=== PATIENT | female | born 1955 | race Caucasian/White ===

== ENCOUNTER → 2020-04-27 11:50 | Outpatient (CLI) | payer BC, SELFPAY ==
--- NOTE | ~2020-04-27 | MM_ITS ---
EXAMINATION: MM screening [facility] w [facility] HISTORY: Screening TECHNIQUE: Craniocaudal and mediolateral oblique 3-D tomosynthesis images were obtained and synthetic 2-D images were generated. CAD analysis was submitted and interpreted. COMPARISON: Comparison to multiple prior studies sequentially, with oldest reviewed study dated 03/30. BREAST PARENCHYMAL COMPOSITION: There are scattered areas of fibroglandular density. FINDINGS: There is no evidence of suspicious mass, calcification, or architectural distortion to sugg est malignancy in either breast. There has been no suspicious interval change. IMPRESSION: 1. No mammographic evidence of malignancy. 2. Recommend routine screening mammography in one year. BI-RADS Category 1: Negative Reviewed, dictated and finalized at location A. 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
== END ==
PROVIDERS: PCP Internal Medicine; Visit Provider Internal Medicine
DX: Z12.31 Encounter for screening mammogram for malignant neoplasm of breast (principal)
CPT/HCPCS: 77063; 77067

== ENCOUNTER → 2021-05-20 15:14 | Outpatient (CLI) | payer BC, SELFPAY ==
--- NOTE | ~2021-05-20 | MM_ITS ---
EXAMINATION: MM screening [place] [facility] w [facility] HISTORY: Screening TECHNIQUE: Craniocaudal and mediolateral oblique 3-D tomosynthesis images were obtained and synthetic 2-D images were generated. CAD analysis was submitted and interpreted. COMPARISON: Comparison to multiple prior studies sequentially, with oldest reviewed study dated 05/2014. BREAST PARENCHYMAL COMPOSITION: Breast composed of scattered areas of fibroglandular density. FINDINGS: There is no evidence of suspicious mass, calcification, or architectural distortion to sugg est malignancy in either breast. There has been no suspicious interval change. IMPRESSION: 1. No mammographic evidence of malignancy. 2. Recommend routine screening mammography in one year. BI-RADS Category 1: Negative Reviewed, dictated and finalized at location A. 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
== END ==
PROVIDERS: PCP Internal Medicine; Visit Provider Internal Medicine
DX: Z12.31 Encounter for screening mammogram for malignant neoplasm of breast (principal)
CPT/HCPCS: 77063; 77067

== ENCOUNTER 2022-06-03 07:16 | Outpatient (CLI) | payer BC, SELFPAY ==
--- NOTE | ~2022-06-03 | MM_ITS ---
EXAMINATION: MM screening [facility] w [facility] HISTORY: Screening mammogram TECHNIQUE: Craniocaudal and mediolateral oblique 3-D tomosynthesis images were obtained and synthetic 2-D images were generated. CAD analysis was submitted and interpreted. COMPARISON: 05/20/2021, 04/27/2020, 04/03/2019, 04/01/2018, 02/16/2017, 11/25/2015 bilateral screening ma mmogram examinations BREAST PARENCHYMAL COMPOSITION: There are scattered areas of fibroglandular density. FINDINGS: Stable mild fibroglandular asymmetry since 11/17/2015. There is no evidence of suspicious ma ss, calcification, or architectural distortion to suggest malignancy in either breast. There has been no suspicious interval change. IMPRESSION: 1. No mammographic evidence of malignancy. 2. Recommend routine screening mammography in one year. BI-RADS Category 1: Negative Reviewed, dictated and finalized at location A. COILER
== END 2022-06-03 07:17 | disposition home or self-care (01) ==
LOC: ANHIMG 07:19
PROVIDERS: PCP Internal Medicine; Visit Provider Internal Medicine
DX: Z12.31 Encounter for screening mammogram for malignant neoplasm of breast (principal)
CPT/HCPCS: 77063; 77067

== ENCOUNTER 2023-07-16 15:12 | Outpatient (CLI) | payer MEDICARE, OTHER, SELFPAY ==
--- NOTE | ~2023-07-16 | MM_ITS ---
EXAMINATION: MM screening [facility] w [facility] HISTORY: Screening TECHNIQUE: Craniocaudal and mediolateral oblique 3-D tomosynthesis images were obtained and synthetic 2-D images were generated. CAD analysis was submitted and interpreted. COMPARISON: Comparison to multiple prior studies sequentially, with oldest reviewed study dated 01/29. BREAST PARENCHYMAL COMPOSITION: Not dense: There are scattered areas of fibroglandular density. FINDINGS: There is no evidence of suspicious mass, calcification, or architectural distortion to sugg est malignancy in either breast. There has been no suspicious interval change. IMPRESSION: 1. No mammographic evidence of malignancy. 2. Recommend routine screening mammography in one year. BI-RADS Category 1: Negative Reviewed, dictated and finalized at location A.
== END 2023-07-16 15:13 | disposition home or self-care (01) ==
LOC: ANHIMG 15:15
PROVIDERS: PCP Internal Medicine; Visit Provider Internal Medicine
DX: Z12.31 Encounter for screening mammogram for malignant neoplasm of breast (principal)
CPT/HCPCS: 77063; 77067

== ENCOUNTER 2024-08-25 14:59 | Outpatient (CLI) | payer MEDICARE, OTHER, SELFPAY ==
--- NOTE | ~2024-08-25 | MM_ITS ---
EXAMINATION: MM screening carlita BI w rosendo HISTORY: Screening mammogram, family history of breast cancer in her mother. TECHNIQUE: Craniocaudal and mediolateral oblique 3-D tomosynthesis images were obtained and synthetic 2-D images were generated. CAD analysis was submitted and interpreted. COMPARISON: 07/16/2023, 06/03/2022, 05/20/2021, 04/27/2020 BREAST PARENCHYMAL COMPOSITION:Not Dense. There are scattered areas of fibroglandular density. FINDINGS: No suspicious mass, calcification, or architectural distortion are identified in either she ast to suggest malignancy. There has been no suspicious interval change. IMPRESSION: No mammographic evidence of malignancy. Recommend routine screening mammography in one year. BI-RADS Category 1: Negative Reviewed, dictated and finalized at location .
--- OUTSIDE RECORDS SUMMARY | 2024-08-25 17:12 | XMS_ITS | CONTINUITY OF CARE DOCUMENT ---
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 [id number]
--- OUTSIDE RECORDS SUMMARY | 2024-08-25 17:12 | XMS_ITS | Data Portability ---
Author Organization [place] [facility] [employer], Main Office Address [address] [place] [address] Assessment No assessment recorded. Plan of Treatment Reminders Order Date Submit Date Provider Last Modified By Organization Details Last Modified Time Details Appointments Medicare Wellness 15 2024 08:45A Tima Ahn MD Not available Not available Not available Lab glycohemo globin, total, blood [address] (Lab), [address] [place], [address], 01/01/2024 11:10:46 vitamin D, 25-hydrox y, total, serum [address] (Lab), [address] [place], [address], 01/01/2024 11:10:45 CBC w/ auto diff [address] (Lab), [address] [place], [address], 01/01/2024 11:10:46 lipid panel, serum [address] (Lab), [address] [place], [address], 01/01/2024 11:10:45 CMP, serum or plasma [address] (Lab), [address] [place], [address], 01/01/2024 11:10:46 vitamin D, 25-hydrox y, total, serum 2022 023 [facility] (Lab), [address] [place], [address], 01/24/2023 14:50:49 CBC w/ auto diff 2022 023 [facility] (Lab), [address] [place], [address], 01/24/2023 13:49:49 lipid panel, serum 2022 023 [facility] (Lab), [address] [place], [address], 01/24/2023 13:48:42 CMP, serum or plasma 2022 023 [facility] (Lab), [address] [place], [address], 01/24/2023 13:48:53 Referral None recorded. Procedures None recorded. Surgeries None recorded. Imaging None recorded. Medication Orders meloxicam 15 mg tablet 2024 025 [id number], [address], [place], [id number], 05/16/2024 09:45:49 Patient TargetsNo targets recorded. Patient Instructions Encounter Date Encounter Id Patient Instructions Last Modified By Organization Details Last Modified Time 12/18/2023 [id number] dementia rating scale-2* Not available 12/18/2023 17:02:55 depression screening* Not available 12/18/2023 17:02:55 alcohol misuse* Not available 12/18/2023 17:02:55 multi-dimensiona l health assessment questionnaire* Not available 12/18/2023 17:02:55 advance directiv es: care instructions Not available 12/18/2023 17:02:55 advance care planning: care instructions Not available 12/18/2023 17:02:55 [place] Advance Directives Not available 12/18/2023 17:02:54 Personalized a lt Plan and Screening Recommendations Advance Directives - Do you have one? No You have indicated that you are capable of preparing your advance care directive Advance Directives - Do we have your advance directive on file in your health record? No, please bring in a copy at your earliest convenience Primary Prevention/Interven tion (prevents or decreases the chance of common diseases from occurring) Smoking Risk: Non Smoker Alcohol Misuse Screening: Negative Weight: Appropriate Overwei ght continue your current weight loss efforts try to lose 5% of your body weight try to lose 10% of your body weight Physical activity: Appropriate physical activity minimum of 10-20 minutes of activity that causes mild breathlessness/day Nutrition: Good Average Refer to attached handout Heart-Healthy Diet: After Your Visit Refer to attached handout DASH Diet: After Your Visit Fall Risk (screened today): Low Refer to attached handout Preventing Falls: After your Visit Vaccines Pneumococcal: Ordered Recommended today Recommended today, but you have declined No further needed Influenza: Your next one in the fall of this year Chronic Disease Risks Stroke: Low Risk I have no recommendations Act luís diagnosis, Continue current treatment plan Heart Attack: Low risk I have no recommendations Clogging of the Arteries: Low risk I have no recommendations Act luís diagnosis, Continue current treatment plan Diabetes: Low Risk I have no recommendations Secondary Prevention/Interven tion (detects treatable diseases before they may cause symptoms, disability, or ) Breast Cancer Screening with mammogram: No screening necessary Cervical/Uterine/Ov garth Cancer Screening: No screening necessary Osteoporosis Screening: No screening necessary Date Screening Last Performed: _2022 Colon Cancer Screening: Colonoscopy Date Screening Last Performed: 2022_ Eye Disease Screening: No Eye exam necessary Dementia Risk: Low I have no recommendations Depression Screening: Negative [id number] Not available 12/18/2023 17:00:13 Reason for Referral None Reported. Results Created Date Observation Date Name Description Value Unit Range Abnormal Flag Note LastModifiedBy Organization Detail LastModifiedTime 07/15/19 21 07/14/2020 urina lysis , dipst ick Leukocytes (reference range: negative linda/ l) Negati ve Not Available [id number] [address] [place], [address], 07/14/2020 13:06:57 07/15/19 21 07/14/2020 urina lysis , dipst ick Nitrite (reference rage: negative mg/dl) negati ve Not Available [facility] [address] [place], [address], 07/14/2020 13:06:57 07/15/19 21 07/14/2020 urina lysis , dipst ick Urobilinogen (reference range: 0.2-1 mg/dl) 0.2 Not Available [facility] [address] [place], [address], 07/14/2020 13:06:57 07/15/19 21 07/14/2020 urina lysis , dipst ick Protein (reference range: negative mg/dl) Negati ve Not Available [facility] [address] [place], [address], 07/14/2020 13:06:57 07/15/19 21 07/14/2020 urina lysis , dipst ick pH (reference range: 5-7) 5.[address] [facility] [address] [place], [address], 07/14/2020 13:06:57 07/15/19 21 07/14/2020 urina lysis , dipst ick Blood (reference range: negative Jon/ l) Negati ve Not Available [facility] [address] [place], [address], 07/14/2020 13:06:57 07/15/19 21 07/14/2020 urina lysis , dipst ick Specific [place] (reference range: 1.005-1.030) 1.005 Not Available [facility] [place], [address], 07/14/2020 13:06:57 07/15/19 21 07/14/2020 urina lysis , dipst ick Ketone (reference range: negative mg/dl) Negati ve Not Available [facility] [address] [place], [address], 07/14/2020 13:06:57 07/15/19 21 07/14/2020 urina lysis , dipst ick Bilirubin (reference range: negative mg/dl) Negati ve Not Available [facility] [address] [place], [address], 07/14/2020 13:06:57 07/15/19 21 07/14/2020 urina lysis , dipst ick Glucose (reference range: negative mg/dl) Negati ve Not Available [facility] [address] [place], [address], 07/14/2020 13:06:57 07/15/19 21 07/14/2020 urina lysis , dipst ick Appearance Clear Not Available [facility] [address] [place], [address], 07/14/2020 13:06:57 07/15/19 21 07/14/2020 urina lysis , dipst ick Color Pale Yellow Not Available [facility] [address] [place], [address], 07/14/2020 13:06:57 04/20/20 21 04/20/2021 VITAM IN D 25-HY DROXY [id number] 68.2 NG/mL 30-100 Vitam in D Statu s: Defic ient: <20 ng/mL Insuf ficie nt: 20-29 ng/mL Suffi cient : 30-10 0 ng/mL Not Available [facility] (Lab) [address] [place], [address], 04/20/2021 12:25:53 04/20/2004/20/2021 HEMOG LOBIN A1C HA1C 5.6 % 4.0-6. 0 Diabe sukhwinder Scree mike Crite fernanda: <5.7% Consi stent with absen ce of diabe sukhwinder 5.7-6 .4% Consi stent with incre ased risk for diabe sukhwinder (pred iabet es) >OR=6 .5% Consi stent with diabe sukhwinder REFER ENCE: Diabe sukhwinder Care 2016, 39(Meier ppl.1 ):s13 -s22 Not Available [facility] (Lab) [address] [place], [address], 04/20/2021 12:06:07 04/20/20 21 04/20/2021 COMPR EHENS LUÍS METAB OLIC PANEL sodium 139 mmol/ L 137-14 5 Not Available [facility] (Lab) [address] [place], [address], 04/20/2021 11:30:56 04/20/20 21 04/20/2021 COMPR EHENS LUÍS METAB OLIC PANEL potassium 4.7 mmol/ L 3.5-5. 1 Not Available [facility] (Lab) [address] [place], [address], 04/20/2021 11:30:56 04/20/20 21 04/20/2021 COMPR EHENS LUÍS METAB OLIC PANEL chloride 103 mmol/ L 98-107 Not Available [facility] (Lab) [address] [place], [address], 04/20/2021 11:30:56 04/20/20 21 04/20/2021 COMPR EHENS LUÍS METAB OLIC PANEL carbon dioxide 28 mmol/ L 22-30 Not Available [facility] (Lab) [address] [place], [address], 04/20/2021 11:30:56 04/20/20 21 04/20/2021 COMPR EHENS LUÍS METAB OLIC PANEL agap 12.7 mmol/ L 14-22 low Not Available [facility] (Lab) [address] [place], [address], 04/20/2021 11:30:56 04/20/20 21 04/20/2021 COMPR EHENS LUÍS METAB OLIC PANEL glucose 102 mg/dL 70-99 high Not Available [facility] (Lab) [address] [place], [address], 04/20/2021 11:30:56 04/20/20 21 04/20/2021 COMPR EHENS LUÍS METAB OLIC PANEL BUN 15 mg/dL 8-19 Not Available [facility] (Lab) [address] [place], [address], 04/20/2021 11:30:56 04/20/20 21 04/20/2021 COMPR EHENS LUÍS METAB OLIC PANEL creatinine 0.62 mg/dL 0.66-1 .25 low Not Available [facility] (Lab) [address] [place], [address], 04/20/2021 11:30:56 04/20/20 21 04/20/2021 COMPR EHENS LUÍS METAB OLIC PANEL GFR >60 Refer ence Range : [place] GFR Healt hy Adult : >60 mL/mi n/1.7 3 m2 Chron ic Kidne y Disea se: 15-60 mL/mi n/1.7 3 m2 Kidne y Failu re: <15/m L/min /1.73 m2 www.n iddk. nih.g ov The MDRD study equat ion has not been valid ated in child chris <18 years of age; pregn ant women ; the elder ly >85 years of age; or in some racia l or ethni c subgr oups, such as Hispa nics. Outsi de the valid ated kade eters , estim ated GFR is less accur ate, requi ring clini ghulam judgm ent on a case- by-ca se basis . Clini ghulam inter preta tion for other races and ages must be made by the clini ro. The MDRD study equat ion has not been valid ated for the evalu ation of serum creat inine relat ed to nutri ellis l statu s or medic ation usage . For perso ns <18 years of age, a pedia tric GFR calcu lator is avail able on the [facility] websi te: https ://kostas w.adarsh mcgregor.o rg/pr ofess ional s/kdo qi/gf r_cal culat or Not Available [facility] (Lab) [address] [place], [address], 04/20/2021 11:30:56 04/20/20 21 04/20/2021 COMPR EHENS LUÍS METAB OLIC PANEL alkaline phosphatase 92 U/L 38-126 Not Available [facility] (Lab) [address] [place], [address], 04/20/2021 11:30:56 04/20/20 21 04/20/2021 COMPR EHENS LUÍS METAB OLIC PANEL alanine aminotransfe rase 23 U/L 0-35 Not Available [facility] (Lab) [address] [place], [address], 04/20/2021 11:30:56 04/20/20 21 04/20/2021 COMPR EHENS LUÍS METAB OLIC PANEL aspartate aminotransfe rase 29 U/L 15-37 Not Available [facility] (Lab) [address] [place], [address], 04/20/2021 11:30:56 04/20/20 21 04/20/2021 COMPR EHENS LUÍS METAB OLIC PANEL bilirubin, total 1.00 mg/dL 0.20-1 .30 Not Available [facility] (Lab) [address] [place], [address], 04/20/2021 11:30:56 04/20/20 21 04/20/2021 COMPR EHENS LUÍS METAB OLIC PANEL calcium 9.1 mg/dL 8.4-10 .2 Not Available [facility] (Lab) [address] [place], [address], 04/20/2021 11:30:56 04/20/20 21 04/20/2021 COMPR EHENS LUÍS METAB OLIC PANEL total protein 8.1 g/dL 6.3-8. 2 Not Available [facility] (Lab) [address] [place], [address], 04/20/2021 11:30:56 04/20/20 21 04/20/2021 COMPR EHENS LUÍS METAB OLIC PANEL albumin 4.6 g/dL 3.0-4. 4 high Not Available [facility] (Lab) [address] [place], [address], 04/20/2021 11:30:56 04/20/20 21 04/20/2021 COMPR EHENS LUÍS METAB OLIC PANEL globulin 3.5 g/dL 2.6-4. 2 Not Available [facility] (Lab) [address] [place], [address], 04/20/2021 11:30:56 04/20/20 21 04/20/2021 COMPR EHENS LUÍS METAB OLIC PANEL A/G ratio 1.3 ratio 1.0-2. 0 Not Available [facility] (Lab) [address] [place], [address], 04/20/2021 11:30:56 04/20/20 21 04/20/2021 LIPID PANEL cholesterol 266 mg/dL 140-19 9 high NIH SHAWNA NSUS RECOM MENDA TION FOR ELLIS STERO L: ADULT CHILD LOW RISK: <200 <170 BORDE RLINE : <200- 239 ----- HIGH RISK: >240 >200 Not Available [facility] (Lab) [address] [place], [address], 04/20/2021 11:30:52 04/20/20 21 04/20/2021 LIPID PANEL triglyceride s 94 mg/dL 0-150 NIH SHAWNA NSUS REPOR T RECOM MENDA TION FOR TRIGL YCERI JACOB: ADULT CHILD LOW RISK: <150 ----- BODER LINE: 150-1 99 ----- HIGH RISK: >200 ----- Not Available [facility] (Lab) [address] [place], [address], 04/20/2021 11:30:52 04/20/20 21 04/20/2021 LIPID PANEL HDL cholesterol 69 mg/dL 40- Not Available [facility] (Lab) [address] [place], [address], 04/20/2021 11:30:52 04/20/20 21 04/20/2021 LIPID PANEL LDL cholesterol, calculated 178 mg/dL 0-130 high NIH SHAWNA NSUS REPOR T RECOM MENDA TIONS FOR LDL: ADULT CHILD LOW RISK <130 <110 (OPTI MAL LDL) <100 ----- BORDE RLINE : 130-1 59 ----- HIGH RISK: >160 >130 A TRIGL YCERI DE RESUL T >400 INVAL IDATE S THE CALCU LATIO N FOR LDL FRACT IONAT ION - THE LDL RESUL T WILL NOT BE REPOR JAMESON. Not Available [facility] (Lab) [address] [place], [address], 04/20/2021 11:30:52 01/25/20 23 01/24/2023 VITAM IN D 25-HY DROXY [id number] 39.1 NG/mL 30-100 Vitam in D Statu s: Defic ient: <20 ng/mL Insuf ficie nt: 20-29 ng/mL Suffi cient : 30-10 0 ng/mL Not Available [facility] (Lab) [address] [place] [address], [address], 01/24/2023 13:48:12 01/25/20 23 01/24/2023 LIPID PANEL cholesterol 253 mg/dL 140-19 9 high NIH SHAWNA NSUS RECOM MENDA TION FOR ELLIS STERO L: ADULT CHILD LOW RISK: <200 <170 BORDE RLINE : <200- 239 ----- HIGH RISK: >240 >200 Not Available [facility] (Lab) [address] [place] [address], [address], 01/24/2023 13:48:42 01/25/20 23 01/24/2023 LIPID PANEL triglyceride s 92 mg/dL 0-150 NIH SHAWNA NSUS REPOR T RECOM MENDA TION FOR TRIGL YCERI JACOB: ADULT CHILD LOW RISK: <150 ----- BODER LINE: 150-1 99 ----- HIGH RISK: >200 ----- Not Available [facility] (Lab) [address] [place] [address], [address], 01/24/2023 13:48:42 01/25/20 23 01/24/2023 LIPID PANEL HDL cholesterol 68 mg/dL 40- Not Available [facility] (Lab) [address] [place] [address], [address], 01/24/2023 13:48:42 01/25/20 23 01/24/2023 LIPID PANEL LDL cholesterol, calculated 167 mg/dL 0-130 high NIH SHAWNA NSUS REPOR T RECOM MENDA TIONS FOR LDL: ADULT CHILD LOW RISK <130 <110 (OPTI MAL LDL) <100 ----- BORDE RLINE : 130-1 59 ----- HIGH RISK: >160 >130 A TRIGL YCERI DE RESUL T >400 INVAL IDATE S THE CALCU LATIO N FOR LDL FRACT IONAT ION - THE LDL RESUL T WILL NOT BE REPOR JAMESON. Not Available [facility] (Lab) [address] [place], [address], 01/24/2023 13:48:42 01/25/20 23 01/24/2023 COMPR EHENS LUÍS METAB OLIC PANEL sodium 136 mmol/ L 137-14 5 low Not Available [facility] (Lab) [address] [place], [address], 01/24/2023 13:48:53 01/25/20 23 01/24/2023 COMPR EHENS LUÍS METAB OLIC PANEL potassium 4.0 mmol/ L 3.5-5. 1 Not Available [facility] (Lab) [address] [place], [address], 01/24/2023 13:48:53 01/25/20 23 01/24/2023 COMPR EHENS LUÍS METAB OLIC PANEL chloride 102 mmol/ L 98-107 Not Available [facility] (Lab) [address] [place], [address], 01/24/2023 13:48:53 01/25/20 23 01/24/2023 COMPR EHENS LUÍS METAB OLIC PANEL carbon dioxide 27 mmol/ L 22-30 Not Available [facility] (Lab) [address] [place], [address], 01/24/2023 13:48:53 01/25/20 23 01/24/2023 COMPR EHENS LUÍS METAB OLIC PANEL anion gap 11.0 mmol/ L 14-22 low Not Available [facility] (Lab) [address] [place], [address], 01/24/2023 13:48:53 01/25/20 23 01/24/2023 COMPR EHENS LUÍS METAB OLIC PANEL glucose 94 mg/dL 70-99 Not Available [facility] (Lab) [address] [place], [address], 01/24/2023 13:48:53 01/25/20 23 01/24/2023 COMPR EHENS LUÍS METAB OLIC PANEL BUN 15 mg/dL 8-19 Not Available [facility] (Lab) [address] [place], [address], 01/24/2023 13:48:53 01/25/20 23 01/24/2023 COMPR EHENS LUÍS METAB OLIC PANEL creatinine 0.70 mg/dL 0.66-1 .25 Not Available [facility] (Lab) [address] [place], [address], 01/24/2023 13:48:53 01/25/2001/24/2023 COMPR EHENS LUÍS METAB OLIC PANEL GFR >60 Refer ence Range : [place] GFR Healt hy Adult : >60 mL/mi n/1.7 3 m2 Chron ic Kidne y Disea se: 15-60 mL/mi n/1.7 3 m2 Kidne y Failu re: <15/m L/min /1.73 m2 www.n iddk. nih.g ov The MDRD study equat ion has not been valid ated in child chris <18 years of age; pregn ant women ; the elder ly >85 years of age; or in some racia l or ethni c subgr oups, such as mn nics. Outsi de the valid ated kade eters , estim ated GFR is less accur ate, requi ring clini ghulam judgm ent on a case- by-ca se basis . Clini ghulam inter preta tion for other races and ages must be made by the clini ro. The MDRD study equat ion has not been valid ated for the evalu ation of serum creat inine relat ed to nutri ellis l statu s or medic ation usage . For perso ns <18 years of age, a pedia tric GFR calcu lator is avail able on the [facility] websi te: https ://kostas w.adarsh paigey.o rg/pr ofess ional s/kdo qi/gf r_cal culat or Not Available [facility] (Lab) [address] [place], [address], 01/24/2023 13:48:53 01/25/20 23 01/24/2023 COMPR EHENS LUÍS METAB OLIC PANEL alkaline phosphatase 97 U/L 38-126 Not Available [facility] (Lab) [address] [place], [address], 01/24/2023 13:48:53 01/25/20 23 01/24/2023 COMPR EHENS LUÍS METAB OLIC PANEL alanine aminotransfe rase 21 U/L 0-35 Not Available [facility] (Lab) [address] [place], [address], 01/24/2023 13:48:53 01/25/20 23 01/24/2023 COMPR EHENS LUÍS METAB OLIC PANEL aspartate aminotransfe rase 26 U/L 15-37 Not Available [facility] (Lab) [address] [place], [address], 01/24/2023 13:48:53 01/25/20 23 01/24/2023 COMPR EHENS LUÍS METAB OLIC PANEL bilirubin, total 1.00 mg/dL 0.20-1 .30 Not Available [facility] (Lab) [address] [place], [address], 01/24/2023 13:48:53 01/25/2001/24/2023 COMPR EHENS LUÍS METAB OLIC PANEL calcium 9.4 mg/dL 8.4-10 .2 Not Available [facility] (Lab) [address] [place], [address], 01/24/2023 13:48:53 01/25/2001/24/2023 COMPR EHENS LUÍS METAB OLIC PANEL total protein 7.6 g/dL 6.3-8. 2 Not Available [facility] (Lab) [address] [place], [address], 01/24/2023 13:48:53 01/25/20 23 01/24/2023 COMPR EHENS LUÍS METAB OLIC PANEL albumin 4.5 g/dL 3.0-4. 4 high Not Available [facility] (Lab) [address] [place], [address], 01/24/2023 13:48:53 01/25/20 23 01/24/2023 COMPR EHENS LUÍS METAB OLIC PANEL globulin 3.1 g/dL 2.6-4. 2 Not Available [facility] (Lab) [address] [place], [address], 01/24/2023 13:48:53 01/25/20 23 01/24/2023 COMPR EHENS LUÍS METAB OLIC PANEL A/G ratio 1.5 ratio 1.0-2. 0 Not Available [facility] (Lab) [address] [place], [address], 01/24/2023 13:48:53 01/25/20 23 01/24/2023 CBC/C OMPLE TE BLD COUNT W/DIF F white blood cells 5.7 x10'3 /uL 4.2-10 .8 Not Available [facility] (Lab) [address] [place], [address], 01/24/2023 13:49:49 01/25/2001/24/2023 CBC/C OMPLE TE BLD COUNT W/DIF F red blood cells 4.55 x10'6 /uL 3.80-5 .20 Not Available [facility] (Lab) [address] [place], [address], 01/24/2023 13:49:49 01/25/2001/24/2023 CBC/C OMPLE TE BLD COUNT W/DIF F hemoglobin 13.9 g/dL 12.0-1 5.6 Not Available [facility] (Lab) [address] [place], [address], 01/24/2023 13:49:49 01/25/20 23 01/24/2023 CBC/C OMPLE TE BLD COUNT W/DIF F hematocrit 41.6 % 35.7-4 5.7 Not Available [facility] (Lab) [address] [place], [address], 01/24/2023 13:49:49 01/25/2001/24/2023 CBC/C OMPLE TE BLD COUNT W/DIF F mean red cell volume 91.4 fL 82.0-9 9.0 Not Available [facility] (Lab) [address] [place], [address], 01/24/2023 13:49:49 01/25/2001/24/2023 CBC/C OMPLE TE BLD COUNT W/DIF F mean red cell hemoglobin 30.5 pg 27.0-3 3.0 Not Available [facility] (Lab) [address] [place], [address], 01/24/2023 13:49:49 01/25/2001/24/2023 CBC/C OMPLE TE BLD COUNT W/DIF F mean RBC HGB concentratio n 33.4 g/dL 31.0-3 6.0 Not Available [facility] (Lab) [address] [place], [address], 01/24/2023 13:49:49 01/25/2001/24/2023 CBC/C OMPLE TE BLD COUNT W/DIF F red cell distribution width 12.5 % 11.8-1 5.5 Not Available [facility] (Lab) [address] [place], [address], 01/24/2023 13:49:49 01/25/20 23 01/24/2023 CBC/C OMPLE TE BLD COUNT W/DIF F platelets 294 x10'3 /uL 150-40 0 Not Available [facility] (Lab) [address] [place], [address], 01/24/2023 13:49:49 01/25/2001/24/2023 CBC/C OMPLE TE BLD COUNT W/DIF F mean platelet volume 10.1 fL 9.0-12 .4 Not Available [facility] (Lab) [address] [place], [address], 01/24/2023 13:49:49 01/25/2001/24/2023 CBC/C OMPLE TE BLD COUNT W/DIF F neutrophils 62.3 % 39.0-7 2.0 Not Available [facility] (Lab) [address] [place], [address], 01/24/2023 13:49:49 01/25/2001/24/2023 CBC/C OMPLE TE BLD COUNT W/DIF F lymphocytes 27.8 % 16.0-4 7.0 Not Available [facility] (Lab) [address] [place], [address], 01/24/2023 13:49:49 01/25/2001/24/2023 CBC/C OMPLE TE BLD COUNT W/DIF F monocytes 8.1 % 5.0-12 .0 Not Available [facility] (Lab) [address] [place], [address], 01/24/2023 13:49:49 01/25/2001/24/2023 CBC/C OMPLE TE BLD COUNT W/DIF F eosinophils 1.1 % 1.0-7. 0 Not Available [facility] (Lab) [address] [place], [address], 01/24/2023 13:49:49 01/25/2001/24/2023 CBC/C OMPLE TE BLD COUNT W/DIF F basophils 0.5 % 0.0-2. 0 Not Available [facility] (Lab) [address] [place], [address], 01/24/2023 13:49:49 01/25/2001/24/2023 CBC/C OMPLE TE BLD COUNT W/DIF F immature granulocytes 0.2 % 0.00-0 .50 Not Available [facility] (Lab) [address] [place], [address], 01/24/2023 13:49:49 01/25/2001/24/2023 CBC/C OMPLE TE BLD COUNT W/DIF F neutrophils, absolute count 3.56 x10'3 /uL 1.5-8. 0 Not Available [facility] (Lab) [address] [place], [address], 01/24/2023 13:49:49 01/25/2001/24/2023 CBC/C OMPLE TE BLD COUNT W/DIF F lymphocytes, absolute count 1.59 x10'3 /uL 1.07-3 .43 Not Available [facility] (Lab) [address] [place], [address], 01/24/2023 13:49:49 01/25/2001/24/2023 CBC/C OMPLE TE BLD COUNT W/DIF F monocytes, absolute count 0.46 x10'3 /uL 0.29-0 .99 Not Available [facility] (Lab) [address] [place], [address], 01/24/2023 13:49:49 01/25/2001/24/2023 CBC/C OMPLE TE BLD COUNT W/DIF F eosinophils, absolute count 0.06 x10'3 /uL 0.02-0 .53 Not Available [facility] (Lab) [address] [place], [address], 01/24/2023 13:49:49 01/25/2001/24/2023 CBC/C OMPLE TE BLD COUNT W/DIF F basophils, absolute count 0.03 x10'3 /uL 0.01-0 .08 Not Available [facility] (Lab) [address] [place], [address], 01/24/2023 13:49:49 01/25/2001/24/2023 CBC/C OMPLE TE BLD COUNT W/DIF F immature granulocytes ,absolute 0.01 x10'3 /uL 0.00-0 .05 Not Available [facility] (Lab) [address] [place], [address], 01/24/2023 13:49:49 01/25/2001/24/2023 CBC/C OMPLE TE BLD COUNT W/DIF F nucleated red blood cells 0.0 % -0 Not Available [facility] (Lab) [address] [place], [address], 01/24/2023 13:49:49 01/25/2001/24/2023 CBC/C OMPLE TE BLD COUNT W/DIF F NRBC# 0.00 x10'3 /uL Not Available [facility] (Lab) [address] [place], [address], 01/24/2023 13:49:49 05/22/19 25 05/22/2024 CBC/C OMPLE TE BLD COUNT W/DIF F white blood cells 4.7 x10'3 /uL 4.2-10 .8 Not Available [facility] (Lab) [address] [place], [address], 05/22/2024 18:46:02 05/22/19 25 05/22/2024 CBC/C OMPLE TE BLD COUNT W/DIF F red blood cells 4.31 x10'6 /uL 3.80-5 .20 Not Available [facility] (Lab) [address] [place], [address], 05/22/2024 18:46:02 05/22/19 25 05/22/2024 CBC/C OMPLE TE BLD COUNT W/DIF F hemoglobin 13.2 g/dL 12.0-1 5.6 Not Available [facility] (Lab) [address] [place], [address], 05/22/2024 18:46:02 05/22/19 25 05/22/2024 CBC/C OMPLE TE BLD COUNT W/DIF F hematocrit 39.5 % 35.7-4 5.7 Not Available [facility] (Lab) [address] [place], [address], 05/22/2024 18:46:02 05/22/19 25 05/22/2024 CBC/C OMPLE TE BLD COUNT W/DIF F mean red cell volume 91.6 fL 82.0-9 9.0 Not Available [facility] (Lab) [address] [place], [address], 05/22/2024 18:46:02 05/22/19 25 05/22/2024 CBC/C OMPLE TE BLD COUNT W/DIF F mean red cell hemoglobin 30.6 pg 27.0-3 3.0 Not Available [facility] (Lab) [address] [place], [address], 05/22/2024 18:46:02 05/22/19 25 05/22/2024 CBC/C OMPLE TE BLD COUNT W/DIF F mean RBC HGB concentratio n 33.4 g/dL 31.0-3 6.0 Not Available [facility] (Lab) [address] [place], [address], 05/22/2024 18:46:02 05/22/19 25 05/22/2024 CBC/C OMPLE TE BLD COUNT W/DIF F red cell distribution width 12.6 % 11.8-1 5.5 Not Available [facility] (Lab) [address] [place], [address], 05/22/2024 18:46:02 05/22/19 25 05/22/2024 CBC/C OMPLE TE BLD COUNT W/DIF F platelets 264 x10'3 /uL 150-40 0 Not Available [facility] (Lab) [address] [place], [address], 05/22/2024 18:46:02 05/22/19 25 05/22/2024 CBC/C OMPLE TE BLD COUNT W/DIF F mean platelet volume 10.9 fL 9.0-12 .4 Not Available [facility] (Lab) [address] [place], [address], 05/22/2024 18:46:02 05/22/19 25 05/22/2024 CBC/C OMPLE TE BLD COUNT W/DIF F neutrophils 50.8 % 39.0-7 2.0 Not Available [facility] (Lab) [address] [place], [address], 05/22/2024 18:46:02 05/22/19 25 05/22/2024 CBC/C OMPLE TE BLD COUNT W/DIF F lymphocytes 38.6 % 16.0-4 7.0 Not Available [facility] (Lab) [address] [place], [address], 05/22/2024 18:46:02 05/22/19 25 05/22/2024 CBC/C OMPLE TE BLD COUNT W/DIF F monocytes 7.9 % 5.0-12 .0 Not Available [facility] (Lab) [address] [place], [address], 05/22/2024 18:46:02 05/22/19 25 05/22/2024 CBC/C OMPLE TE BLD COUNT W/DIF F eosinophils 1.9 % 1.0-7. 0 Not Available [facility] (Lab) [address] [place], [address], 05/22/2024 18:46:02 05/22/19 25 05/22/2024 CBC/C OMPLE TE BLD COUNT W/DIF F basophils 0.6 % 0.0-2. 0 Not Available [facility] (Lab) [address] [place], [address], 05/22/2024 18:46:02 05/22/19 25 05/22/2024 CBC/C OMPLE TE BLD COUNT W/DIF F immature granulocytes 0.2 % 0.00-0 .50 Not Available [facility] (Lab) [address] [place], [address], 05/22/2024 18:46:02 05/22/19 25 05/22/2024 CBC/C OMPLE TE BLD COUNT W/DIF F neutrophils, absolute count 2.36 x10'3 /uL 1.5-8. 0 Not Available [facility] (Lab) [address] [place], [address], 05/22/2024 18:46:02 05/22/19 25 05/22/2024 CBC/C OMPLE TE BLD COUNT W/DIF F lymphocytes, absolute count 1.80 x10'3 /uL 1.07-3 .43 Not Available [facility] (Lab) [address] [place], [address], 05/22/2024 18:46:02 05/22/19 25 05/22/2024 CBC/C OMPLE TE BLD COUNT W/DIF F monocytes, absolute count 0.37 x10'3 /uL 0.29-0 .99 Not Available [facility] (Lab) [address] [place], [address], 05/22/2024 18:46:02 05/22/19 25 05/22/2024 CBC/C OMPLE TE BLD COUNT W/DIF F eosinophils, absolute count 0.09 x10'3 /uL 0.02-0 .53 Not Available [facility] (Lab) [address] [place], [address], 05/22/2024 18:46:02 05/22/19 25 05/22/2024 CBC/C OMPLE TE BLD COUNT W/DIF F basophils, absolute count 0.03 x10'3 /uL 0.01-0 .08 Not Available [facility] (Lab) [address] [place], [address], 05/22/2024 18:46:02 05/22/19 25 05/22/2024 CBC/C OMPLE TE BLD COUNT W/DIF F immature granulocytes ,absolute 0.01 x10'3 /uL 0.00-0 .05 Not Available [facility] (Lab) [address] [place], [address], 05/22/2024 18:46:02 05/22/19 25 05/22/2024 CBC/C OMPLE TE BLD COUNT W/DIF F nucleated red blood cells 0.0 % -0 Not Available [facility] (Lab) [address] [place], [address], 05/22/2024 18:46:02 05/22/19 25 05/22/2024 CBC/C OMPLE TE BLD COUNT W/DIF F NRBC# 0.00 x10'3 /uL Not Available [facility] (Lab) [address] [place], [address], 05/22/2024 18:46:02 05/22/19 25 05/22/2024 LIPID PANEL cholesterol 172 mg/dL 140-19 9 NIH SHAWNA NSUS RECOM MENDA TION FOR ELLIS STERO L: ADULT CHILD LOW RISK: <200 <170 BORDE RLINE : <200- 239 ----- HIGH RISK: >240 >200 Not Available [facility] (Lab) [address] [place], [address], 05/22/2024 18:54:39 05/22/19 25 05/22/2024 LIPID PANEL triglyceride s 68 mg/dL 0-150 NIH SHAWNA NSUS REPOR T RECOM MENDA TION FOR TRIGL YCERI JACOB: ADULT CHILD LOW RISK: <150 ----- BODER LINE: 150-1 99 ----- HIGH RISK: >200 ----- Not Available [facility] (Lab) [address] [place], [address], 05/22/2024 18:54:39 05/22/19 25 05/22/2024 LIPID PANEL HDL cholesterol 59 mg/dL 40- Not Available [facility] (Lab) [address] [place], [address], 05/22/2024 18:54:39 05/22/19 25 05/22/2024 LIPID PANEL LDL cholesterol, calculated 99 mg/dL 0-130 NIH SHAWNA NSUS REPOR T RECOM MENDA TIONS FOR LDL: ADULT CHILD LOW RISK <130 <110 (OPTI MAL LDL) <100 ----- TUAN RLINE : 130-1 59 ----- HIGH RISK: >160 >130 A TRIGL YCERI DE RESUL T >400 INVAL IDATE S THE CALCU LATIO N FOR LDL FRACT IONAT ION - THE LDL RESUL T WILL NOT BE REPOR JAMESON. Not Available [facility] (Lab) [address] [place], [address], 05/22/2024 18:54:39 05/22/1905/22/2024 COMP MET PANEL /LIVE R sodium 139 mmol/ L 137-14 5 Not Available [facility] (Lab) [address] [place], [address], 05/22/2024 18:54:48 05/22/1905/22/2024 COMP MET PANEL /LIVE R potassium 4.4 mmol/ L 3.5-5. 1 Not Available [facility] (Lab) [address] [place], [address], 05/22/2024 18:54:48 05/22/19 25 05/22/2024 COMP MET PANEL /LIVE R chloride 108 mmol/ L 98-107 high Not Available [facility] (Lab) [address] [place], [address], 05/22/2024 18:54:48 05/22/19 25 05/22/2024 COMP MET PANEL /LIVE R carbon dioxide 24 mmol/ L 22-30 Not Available [facility] (Lab) [address] [place], [address], 05/22/2024 18:54:48 05/22/19 25 05/22/2024 COMP MET PANEL /LIVE R anion gap 11.4 mmol/ L 14-22 low Not Available [facility] (Lab) [address] [place], [address], 05/22/2024 18:54:48 05/22/19 25 05/22/2024 COMP MET PANEL /LIVE R glucose 81 mg/dL 70-99 Not Available [facility] (Lab) [address] [place], [address], 05/22/2024 18:54:48 05/22/19 25 05/22/2024 COMP MET PANEL /LIVE R BUN 17 mg/dL 8-19 Not Available [facility] (Lab) [address] [place], [address], 05/22/2024 18:54:48 05/22/19 25 05/22/2024 COMP MET PANEL /LIVE R creatinine 0.75 mg/dL 0.66-1 .25 Not Available [facility] (Lab) [address] [place], [address], 05/22/2024 18:54:48 05/22/19 25 05/22/2024 COMP MET PANEL /LIVE R GFR >60 Refer ence Range : [place] ge GFR Healt hy Adult : >60 mL/mi n/1.7 3 m2 Chron ic Kidne y Disea se: 15-60 mL/mi n/1.7 3 m2 Kidne y Failu re: <15/m L/min /1.73 m2 www.n iddk. nih.g ov The MDRD study equat ion has not been valid ated in child chris <18 years of age; pregn ant women ; the elder ly >85 years of age; or in some racia l or ethni c subgr oups, such as Hispa nics. Outsi de the valid ated kade eters , estim ated GFR is less accur ate, requi ring clini ghulam judgm ent on a case- by-ca se basis . Clini ghulam inter preta tion for other races and ages must be made by the clini ro. The MDRD study equat ion has not been valid ated for the evalu ation of serum creat inine relat ed to nutri ellis l statu s or medic ation usage . For perso ns <18 years of age, a pedia tric GFR calcu lator is avail able on the [facility] websi te: https ://kostas browning.adarsh mcgregor.o rg/pr ofess ional s/kdo qi/gf r_cal culat or Not Available [facility] (Lab) [address] [place], [address], 05/22/2024 18:54:48 05/22/19 25 05/22/2024 COMP MET PANEL /LIVE R alkaline phosphatase 90 U/L 38-126 Not Available [facility] (Lab) [address] [place], [address], 05/22/2024 18:54:48 05/22/19 25 05/22/2024 COMP MET PANEL /LIVE R alanine aminotransfe rase 25 U/L 0-35 Not Available [facility] (Lab) [address] [place], [address], 05/22/2024 18:54:48 05/22/19 25 05/22/2024 COMP MET PANEL /LIVE R aspartate aminotransfe rase 34 U/L 15-37 Not Available [facility] (Lab) [address] [place], [address], 05/22/2024 18:54:48 05/22/19 25 05/22/2024 COMP MET PANEL /LIVE R bilirubin, total 1.20 mg/dL 0.20-1 .30 Not Available [facility] (Lab) [address] [place], [address], 05/22/2024 18:54:48 05/22/19 25 05/22/2024 COMP MET PANEL /LIVE R bilirubin, conjugated (direct) 0.00 mg/dL 0.00-0 .30 Not Available [facility] (Lab) [address] [place], [address], 05/22/2024 18:54:48 05/22/19 25 05/22/2024 COMP MET PANEL /LIVE R biliurubin,u ncong. (indirect) 0.70 mg/dL 0.00-1 .1 Not Available [facility] (Lab) [address] [place], [address], 05/22/2024 18:54:48 05/22/19 25 05/22/2024 COMP MET PANEL /LIVE R calcium 9.1 mg/dL 8.4-10 .2 Not Available [facility] (Lab) [address] [place], [address], 05/22/2024 18:54:48 05/22/19 25 05/22/2024 COMP MET PANEL /LIVE R total protein 7.2 g/dL 6.3-8. 2 Not Available [facility] (Lab) [address] [place], [address], 05/22/2024 18:54:48 05/22/19 25 05/22/2024 COMP MET PANEL /LIVE R albumin 4.4 g/dL 3.0-4. 4 Not Available [facility] (Lab) [address] [place], [address], 05/22/2024 18:54:48 05/22/19 25 05/22/2024 COMP MET PANEL /LIVE R globulin 2.8 g/dL 2.6-4. 2 Not Available [facility] (Lab) [address] [place], [address], 05/22/2024 18:54:48 05/22/19 25 05/22/2024 COMP MET PANEL /LIVE R A/G ratio 1.6 ratio 1.0-2. 0 Not Available [facility] (Lab) [address] [place], [address], 05/22/2024 18:54:48 05/22/19 25 05/22/2024 VITAM IN D 25-HY DROXY vd25oh 30.3 NG/mL 30-100 Vitam in D Statu s: Defic ient: <20 ng/mL Insuf ficie nt: 20-29 ng/mL Suffi cient : 30-10 0 ng/mL Not Available [facility] (Lab) [address] [place], [address], 05/22/2024 19:18:15 05/22/1905/22/2024 HEMOG LOBIN A1C HA1C 5.7 % 4.0-6. 0 Diabe sukhwinder Genesis mckeon Crite fernanda: <5.7% Consi stent with absen ce of diabe sukhwinder 5.7-6 .4% Consi stent with incre ased risk for diabe sukhwinder (pred iabet es) >OR=6 .5% Consi stent with diabe sukhwinder REFER ENCE: Diabe sukhwinder Care 2016, 39(Meier ppl.1 ):s13 -s22 Not Available [facility] (Lab) [address] [place], [address], 05/22/2024 19:53:38 05/23/19 22 05/23/2021 MAMMO , genesis mckeon, digit al, bilat eral No observ ation record ed. [id number] Not Available 06/28/2022 14:57:49 04/18/20 22 03/31/2010 colon oscop y scree mike (PROC ) No observ ation record ed. [id number] Not Available 06/28/2022 14:57:49 04/18/20 22 02/26/2019 DEXA, axial skele ton No observ ation record ed. [id number] Not Available 06/28/2022 14:57:49 05/12/19 23 05/12/2022 [facility] [address] [place] [address] [phone] Patiisabella t Name: CRISTOBAL GRANADOS Access ion #: [id number] Sex: F : 1954 8 Locati on: RAD Attend ing Physic ector: BEATA AHN ER Orderi ng Physic ector: BEATA AHN ER Exam Date: 023 2:10 PM Exam Name: XR DEXA-H IPS PELVIS SPINE Admitt ing Diagno sis(es ): RADIOL OGY REPORT - FINAL EXAM: XR DEXA-H IPS PELVIS SPINE HISTOR Y: MENOPA USAL 67-yea r-old female with osteop orosis screen ing. COMPAR MARY: DEXA scan dated 2018. TECHNI QUE: Dual energy x-ray of absorp tion examin ation of the bilate ral hips and lumbar spine in AP projec tion was perfor med. FINDIN GS: Lumbar Spine (L1-L4 ): The mean bone minera l densit y is 1.300 g/cm2 hydrox yapati te, correl ating with a T-scor e of 0.8. BMD of the lumbar spine is increa sed 3.2% since the prior study. Bilate ral hips: The mean bone minera l densit y is 0.829 g/cm2 calciu m Page 1 of 2 [facility] Name: CRISTOBAL GRANADOS Access ion #: [id number] Sex: F : 1954 8 Exam Date: 023 2:10 PM Exam Name: XR DEXA-H IPS PELVIS SPINE Admitt ing Diagno sis(es ): hydrox yapati te, correl ating with a T-scor e of -1.4. BMD of the hips is decrea sed 1.7% since the prior study. IMPRES BLAIR: 1. The patien t's lumbar spine T-scor e is consis tent with normal bone minera l densit y. 2. The patien t's bilate ral hip T-scor e is consis tent with osteop enia. Accord ing to the World Health Organi zation , T-scor e values greate r than -1.0 are normal , values betwee n -1.0 and -2.5 are catego rized as osteop enia, T-scor e of -2.5 or more are catego rized as osteop orosis . Create d and electr onical ly signed by: Dean mckeon MD Signed Date: 023 3:21 PM (CT) Dictat ed by: Dean mckeon MD DD: 023 3:20 PM (CT) DT: 023 3:20 PM (CT) Page 2 of 2 [id number] [facility] (Imaging) [address] [place], [address], 06/28/2022 14:57:49 06/05/1906/03/2022 genesis IVY, digit al, bilat eral No observ ation record ed. [id number], [address], 06/28/2022 14:57:49 07/26/1907/21/2022 colon oscop y genesis mckeon (PROC ) No observ ation record ed. Not Available 2022 09:33:34 07/19/19 24 07/16/2023 genesis IVY, digit al, bilat eral No observ ation record ed. Not Available 2023 16:49:19 Result Notes None recorded. Problems Name Problem SNOMED Code Status Onset Date Resolution Date Notes Provider Name and Address Organization Details Recorded Time Osteopeni a 086632024 Active 2018 Erika salinas RMA null, [place] [facility] 4 16:17:23 Bronchiti s 40247790 Completed Not Available [facility] 3 14:56:24 Vitamin D deficienc y 54001041 Active 2017 Erika salinas RMA null, [place] - [facility] [employer] [facility] 4 16:17:25 Sinusitis 60072174 Completed Not Available [facility] 3 14:56:24 Hyperlipi demia 39713487 Active 2017 Erika salinas RMA null, [place] [facility] [employer] [facility] 4 16:17:16 Iritis 92133390 Completed Not Available [facility] 3 14:56:24 Rhinitis 87322625 Completed Not Available [facility] 3 14:56:24 Pain of left hip joint 82870747623 9100 Completed 202212/18/2023 Erika salinas RMA null, [place] - [facility] [employer] [facility] 4 16:17:29 Blood glucose outside reference range 655607406 Active 2022 Erika salinas RMA null, [place] - [facility] [employer] [facility] 4 16:17:19 Hyperglyc emia 90085000 Active 2023 Erick Ahn MD [address], [address], [place], [address] , [employer] - [facility] [employer] [facility] 4 16:50:52 Low back pain 118189064 Active 2024 Erick Ahn MD [address], [address], [place], [address] , [employer] - [facility] [employer] [facility] 5 09:44:56 Problem Notes None recorded. Procedures Surgical History Date Name Laterality Status Provider Name and Address Organization Details Recorded Time 4 Medicare Wellness CPT Code, subsequent completed REILLY Gomez Kevyn [facility] 12/18/2023 16:30:57 4 Advanced Care Planning completed REILLY Gomez [facility] 12/18/2023 16:57:07 Imaging Results Imaging Date Name Status LastModified by Organiz ation Details LastModified Time 03/31/2010 colonoscopy screening (PROC) completed [id number] Information not available 06/28/2022 14:57:49 02/26/2019 DEXA, axial skeleton completed [id number] Information not available 06/28/2022 14:57:49 05/12/2022 DEXA, axial skeleton completed [id number] [facility] (Imaging) [address] [place], [address], 06/28/2022 14:57:49 06/03/2022 MAMMO, screening, digital, bilateral completed [id number], [place], [address], 06/28/2022 14:57:49 05/23/2021 MAMMO, screening, digital, bilateral completed [id number] Information not available 06/28/2022 14:57:49 07/21/2022 [email or web address] not available 07/26/2022 09:33:34 07/16/2023 MAMMO, screening, digital, bilateral completed Information not available 12/18/2023 16:49:19 Procedure Notes None recorded. Medical Equipment None Reported. Medications Name Sig Start Date Stop Date Status Note LastModified by Organization Details LastModified Time prednison e 10 mg tablet Take by oral route. 06/06 completed Not Available Not Available Not Available atorvasta tin 20 mg tablet TAKE 1 TABLET BY MOUTH EVERY DAY 2024 active TERESO 05/16/24 NOV 12/18/24 ok to rf Not Available Not Available Not Available azithromy terra 250 mg tablet TK 2 TS PO FIRST DAY THEN TK 1 T PO QD 06/06 completed Not Available Not Available Not Available meloxicam 15 mg tablet Take 1 tablet every day by oral route as needed. 2024 active ok per 06/12/24 patient case / ds Not Available Not Available Not Available prednisol one acetate 1 % eye drops,merlyn pension active Not Available Not Available Not Available econazole nitrate 1 % topical cream APPLY TO TOENAILS TWICE DAILY 01/24 completed Not Available Not Available Not Available cephalexi n 500 mg capsule TK 1 C PO Q 12 H FOR 7 DAYS 06/06 completed Not Available Not Available Not Available mupirocin 2 % topical ointment APPLY 1 APPLCATI ON ONTO THE AFFECTED AREA(S) ON THE SKIN TWICE DAILY 01/24 completed Not Available Not Available Not Available ergocalci ferol (vitamin D2) 1,250 mcg (50,000 unit) capsule Take 1 capsule every week by oral route. 2024 active Not Available Not Available Not Avai lable methylpre dnisolone 4 mg tablets in a dose pack Take by oral route as directed 06/06 completed Not Available Not Available Not Available SSD 1 % topical cream APPLY A 1/16 INCH (1.5 MM) THICK LAYER TO ENTIRE BURN AREA BY TOPICALR OUTE 2 TIMES PER DAY with dressing changes 01/15 completed Not Available Not Available Not Available atropine 1 % eye drops active Not Available Not Available Not Available fluticaso ne propionat e 50 mcg/actua tion nasal spray,merlyn pension Inhale 2 sprays every day by intranas al route in the evening. 06/06 completed Not Available Not Available Not Available amoxicill in 875 mg-potass ium clavulana te 125 mg tablet 01/15 completed Not Available Not Available Not Available FML S.O.P. 0.1 % eye ointment active Not Available Not Available Not Available rosuvasta tin 20 mg tablet TAKE 1 TABLET BY MOUTH EVERY DAY 01/24 completed Not Available Not Available Not Available aspirin 12/19 completed Not Available Not Available Not Available Vitals Date Recorded Body mass index (BMI) Body height Oxygen saturation Oxygen saturation in Arterial blood by Pulse oximetry Heart rate Body temperature Body weight Systolic blood pressure Diastolic blood pressure Provider Name and Address Organization Details Last Updated DateTime 1 25.2 kg/m2 162.56 cm 98 % 98 % 65 /min 97.4 [degF] 67626.0 8 g 134 mm[Hg] 80 mm[Hg] Not Available [facility] 3 14:56:07 Date Recorded Body mass index (BMI) Body height Oxygen saturation Oxygen saturation in Arterial blood by Pulse oximetry Heart rate Body weight Systolic blood pressure Diastolic blood pressure Provider Name and Address Organization Details Last Updated DateTime 2 27.3 kg/m2 162.56 cm 98 % 98 % 56 /min 35436.1 9 g 136 mm[Hg] 80 mm[Hg] Not Available [facility] 3 14:56:07 Date Recorded Body height Body mass index (BMI) Body weight Body temperature Heart rate Oxygen saturation Oxygen saturation in Arterial blood by Pulse oximetry Systolic blood pressure Diastolic blood pressure Provider Name and Address Organization Details Last Updated DateTime 3 162.56 cm 26.4 kg/m2 23197.2 2 g 97 [degF] 50 /min 100 % 100 % 124 mm[Hg] 70 mm[Hg] Roxane Sheldon MA [facility] [employer] [facility] 3 10:56:32 Date Recorded Body height Body mass index (BMI) Body weight Body temperature Heart rate Oxygen saturation Oxygen saturation in Arterial blood by Pulse oximetry Systolic blood pressure Diastolic blood pressure Provider Name and Address Organization Details Last Updated DateTime 4 162.56 cm 28.3 kg/m2 11417.7 4 g 98.5 [degF] 70 /min 97 % 97 % 124 mm[Hg] 72 mm[Hg] Daniella August [facility] [employer] [facility] 4 16:15:27 Date Recorded Pain severity - 0-10 verbal numeric rating [Score] - Reported Provider Name and Address Organization Details Last Updated DateTime 12/18/2023 0 Tara Garza RN [facility] [facility] 12/18/2023 16:31:46 Date Recorded Body height Body temperature Body mass index (BMI) Body weight Heart rate Oxygen saturation Oxygen saturation in Arterial blood by Pulse oximetry Systolic blood pressure Diastolic blood pressure Provider Name and Address Organization Details Last Updated DateTime 5 162.56 cm 97.4 [degF] 28.2 kg/m2 26366.1 5 g 67 /min 97 % 97 % 119 mm[Hg] 67 mm[Hg] Shy barrera [place] [employer] [facility] [employer] 09:32:05 Social History Question Answer Notes LastModified by Organization Details LastModified Time Tobacco Smoking Status Never Smoker Tara Garza RN [facility], [facility] [employer] 12/18/2023 16:32:40 Do You Have An Advance Directive? No Paperwork Provided (12/18/2023) [email or web address] Information not available 12/18/2023 What Is Your Level Of Alcohol Consumption? None [email or web address] Information not available 12/18/2023 Are You Blind Or Do You Have Difficulty Seeing? No [email or web address] Information not available 12/18/2023 Is Blood Transfusion Acceptable In An Emergency? Yes [email or web address] Information not available 12/18/2023 What Is Your Level Of Caffeine Consumption? Occasional [email or web address] Information not available 12/18/2023 Are You Currently Employed? Yes [email or web address] Information not available 12/18/2023 Are You Deaf Or Do You Have Serious Difficulty Hearing? No [email or web address] Information not available 12/18/2023 What Type Of Diet Are You Following? REGULAR [email or web address] Information not available 12/18/2023 What Is The Highest Grade Or Level Of School You Have Completed Or The Highest Degree You Have Received? 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 5 [email or web address] Information not available 12/18/2023 On Those Days That You Engage In Moderate To Strenuous Exercise, How Many Minutes, On Average, Do You Exercise? 35 [email or web address] Information not available 12/18/2023 Have There Been Any Changes To Your Family Or Social Situation? Yes Helping With Family Member Out Of Area, Travel A Lot [email or web address] Information not available 12/18/2023 What Is The Fluoride Status Of Your Home? Fluoridated [email or web address] Information not available 12/18/2023 Are There Any Guns Present In Your Home? No [email or web address] Information not available 12/18/2023 Do You Use Insect Repellent Routinely? Yes [email or web address] Information not available 12/18/2023 Where [facility] You Live? [facility] [email or web address] Information not available 12/18/2023 Presence Of Domestic Violence No [email or web address] Information not available 12/18/2023 Guns Present In The Home? No [email or web address] Information not available 12/18/2023 Are You Able To Care For Yourself? Yes [email or web address] Information not available 12/18/2023 Are You Blind Or Do Yo Have Difficulty Seeing? No [email or web address] Information not available 12/18/2023 Are You Deaf Or Do You Have Serious Difficulty Hearing? No [email or web address] Information not available 12/18/2023 General Stress Level? Moderate [email or web address] Information not available 12/18/2023 Live Alone Of With Others? Alone [email or web address] Information not available 12/18/2023 Do You Have A Medical Power Of Content Editor? No [email or web address] Information not available 12/18/2023 What Was The Date Of Your Most Recent Tobacco Screening? 12/18/2023 [email or web address] Information not available 12/18/2023 How Many Children Do You Have? 3 [email or web address] Information not available 12/18/2023 Do You Have Any Pets? Yes [email or web address] Information not available 12/18/2023 What Is Your Relationship Status? [email or web address] Information not available 12/18/2023 Do You Use Your Seat Belt Or Car Seat Routinely? Yes [email or web address] Information not available 12/18/2023 Are You Sexually Active? No [email or web address] Information not available 12/18/2023 Do You Have Smoke And Carbon Monoxide Detectors In Your Home? Yes [email or web address] Information not available 12/18/2023 Are You Passively Exposed To Smoke? No [email or web address] Information not available 12/18/2023 Are There Any Smokers In Your House? No [email or web address] Information not available 12/18/2023 What Types Of Sporting Activities Do You Participate In? None [email or web address] Information not available 12/18/2023 Do You Feel Stressed (tense, Restless, Nervous, Or Anxious, Or Unable To Sleep At Night)? [id number] [email or web address] Information not available 12/18/2023 Do You Use Any Illicit Or Recreational Drugs? No [email or web address] Information not available 12/18/2023 Do You Use Sunscreen Routinely? Yes [email or web address] Information not available 12/18/2023 Has Tobacco Cessation Counseling Been Provided? No [email or web address] Information not available 12/18/2023 Have You Recently Traveled Abroad? No [email or web address] Information not available 12/18/2023 Do You Have Any Dietary Restrictions? No [email or web address] Information not available 12/18/2023 Do You Or Have You Ever Used Any Other Forms Of Tobacco Or Nicotine? No [email or web address] Information not available 12/18/2023 Sex: Unknown Functional Status Question Answer Note LastModified by Organizat ion Details LastModified Time Do you have difficulty walking or climbing stairs? No [email or web address] Information not available 12/18/2023 Do you have transportation difficulties? No [email or web address] Information not available 12/18/2023 Are you able to walk? YESWOREST [email or web address] Information not available 12/18/2023 Do you have difficulty doing errands alone? No [email or web address] Information not available 12/18/2023 Are you able to care for yourself? Yes [email or web address] Information not available 12/18/2023 Do you have difficulty dressing or bathing? No [email or web address] Information not available 12/18/2023 What is your exercise level? Moderate [email or web address] Information not available 12/18/2023 Mental Status Question Answer Note LastModified by Organization D etails LastModified Time Do you have difficulty concentrating, remembering or making decisions? No [email or web address] Information no t available 12/18/2023 Family History Nothing Reported. Medical History No medical history recorded. Gynecological HistoryNo gynecological history recorded. Obstetrics History GPAL:G 0 P 0 0 0 0 Immunizations Vaccine Type Date Status Note Provider Nam e and Address Organization Details Recorded Time SARS-COV-2 (COVID-19) vaccine, UNSPECIFIED 1 completed Not Available [facility] 06/28/2022 14:57:45 SARS-COV-2 (COVID-19) vaccine, UNSPECIFIED 0 completed Not Available [facility] 06/28/2022 14:57:45 Pneumococcal conjugate PCV 13 9 completed Not Available [facility] 06/28/2022 14:57:45 Past Encounters Encounter ID Performer Location Encounter Start Date Encounter Closed Date Diagnosis/Indication Diagnosis SNOMED-CT Code Diagnosis ICD10 Code Diagnosis Note [id number] [facility] [place] [address] [place] [address] 07/14/2020 00:00:00 07/14/2020 13:41:58 [id number] [facility] Internal [address] [place] [address] 04/18/2022 00:00:00 04/18/2022 17:07:34 [id number] Erick Ahn MD [facility] [address] [place] [address] 01/24/2023 10:23:16 01/24/2023 11:35:40 Hyperlipidemia 83715100 E78.5 keep watching diet Vitamin D deficiency 347 68455 E55.9 Adult [facility] examination 058553545 Z00.00 Colonoscop y- 07/21/2022 Mammogram- 06/03/2022 Pap- 2021 Dexa- 05/12/22 Pneumovax- Prevnar - 01/15/2019 FLU- 01/2022 COVID- #1- 04/16/2020 , #2- 05/04/2020 #3- 01/2022 Pain of le ft hip joint [id number] 85973 M25.552 getting better, aleve, heat [id number] Erick Ahn MD [facility] [address] [place] [address] 12/18/2023 15:54:31 12/18/2023 17:02:43 Hyperlipidemia 29890275 E78.5 Watch diet, try the med qod, labs in 2 months Vitamin D deficiency 347 32720 E55.9 on otc Adult heal th examination 687196453 Z00.00 Colonoscop y- 07/21/2022M ammogram- 07/16/23Pa p- 2Dexa- 05/12/22Pne umovax-23 in revna r 13- 01/15/2019 FLU- 01/2023- per ptCOVID- #1- 04/16/2020 , #2- 05/04/2020 #3- 01/2022 Screening for disorder 061874124 Z13.9 Hyperglycemia 11364428 R 73.9 advised to watch diet Osteopenia 929444822 M85 .80 on caltrate [id number] Erick Ahn MD [facility] [address] [place] [address] 05/16/2024 09:13:05 05/16/2024 09:50:20 Low back pain 094911437 M54.50 stretching demo given, iceapp Health Concerns Section Related Observation LastModified by Organization Detai ls LastModified Time None Recorded Concern Status LastModified by Organization Details LastModified Time None Recorded Advance Directives Directive N: paperwork provided (2023) Payers Encounter Date Sequence Insurance Name Policy Number Policy Abel Covered Member ID Abel Member ID Guarantor Name 01/24/2023 1 [place] Cristobal Jiang [id number] 1 Cristobal Jiang 01/24/2023 2 [employer] (MEDICARE SUPPLEMENT) Cristobal Jiang [id number] Cristobal Jiang 12/18/2023 1 [place] Cristobal Jiang [id number] 1 Cristobal Jiang 12/18/2023 2 [employer] (MEDICARE SUPPLEMENT) Cristobal Jiang [id number] Cristobal Jiang 05/16/2024 1 [place] Cristobal Jiang [id number] 1 Cristobal Jiang 05/16/2024 2 [employer] (MEDICARE SUPPLEMENT) Cristobal Jiang [id number] Cristobal Jiang Notes Date Note Type Note Provider Name and Address Organization Details Recorded Time 01/24/2023 text/html She is here toda y for her annual check up, no meds, *has left hip pain after hiking trip in [place]* no swelling, pain on walking and standing, pain is getting better Hyperglycemia, A1c was 5.6 (04/19) Hyperlipidemia, watching diet, more active, stopped taking atorvastatin long time ago, was 266 vit d def- taking otc Basal cell carcinoma- On face, waiting for surgery Erick Ahn MD [address], [place], [address], [place] 01/24/2023 11:35:44 12/18/2023 text/html She is here toda y for her annual check up, Hyperglycemia, A1c was 5.6 (04/20/21), watching diet Hyperlipidemia, watching diet, more activeHas muscle aches so does not take it all the time, really bothers her while sleeping, NOT TAKING MEDS DAILYMeds- Atorvastatin 20mg daily, has tried rosuvastatin Vit d def- taking otc Osteopenia- on caltrate Basal cell carcinoma- On face, waiting for surgery Erick Ahn MD [address], [place], [address], [place] 12/18/2023 17:03:01 05/16/2024 text/html Pt is here for lower back with a shooting pain down her Left leg pain onset 1 month. No injury, maybe gardening caused it and lifting travel bags irritated her lower back while traveling in [place] . Pt says laying down and walking makes it worse with a 3 out of 10 pain scale, Sitting its okay. She states it is getting better just irritating her. OTC tylenol.no fall or injuryno numbness or tinglingno weakness no urinary problems Erick Ahn MD [address], [place], [address], [place] 05/16/2024 09:48:07 OBGyn Episode No OBEpisode recorded.
--- OUTSIDE RECORDS SUMMARY | 2024-08-25 17:12 | XMS_ITS | Data Portability ---
Author Organization [facility] [place] Address [address] [place] [address] Care Team Providers Care Commercial Photographer Name Role Phone MONSTER PALMINDER Primary Care Provider [phone] Assessment Encounter Date Assessment Date Assessment LastModified by Organization Details LastModified Time 06/16/2022 06/16/2022 healthy female exam/menopause pap done- if normal may be her last mammogram UTD colonoscopy next month dexa repeat Encouraged weight bearing exercise and 1500mg daily of Calcium with Vitamin D FU 1 year or prn [email or web address] Not available 06/16/2022 16:55:01 03/12/2024 03/12/2024 Annual gynecological exam performed. Patient will come back in a year unless there are new symptoms. [email or web address] Not available 03/04/2024 10:57:33 Plan of Treatment Reminders Order Date Submit Date Provider Last Modified By Organization Details Last Modified Time Details Appointments None record ed. Lab None record ed. Referral None record ed. Procedures None record ed. Surgeries None record ed. Imaging None record ed. Medication Orders None record ed. Patient TargetsNo targets recorded. Patient InstructionsNo instructions recorded. Reason for Referral None Reported. Results Created Date Observation Date Name Description Value Unit Range Abnormal Flag Note LastModifiedBy Organization Detail LastModifiedTime 06/16/1906/16/2022 IMAGE GUIDE D PAP AND HPV REGAR DLESS image guided Pap, HPV regardless of Pap result SEE RESULT S BELOW CASE REPOR T: Cytol ogy Gynec ologi ghulam Repor t Case: [id number] Autho selwyn g Provi ofe: Judy Lugo MD Colle cted: 06/16 1542 Order ing Locat ion: [place] Patho logannelise Recei cem: 06/19 0736 First Scree n: Janene Robins, CT Speci men: Scree mike Pap - Image d, Cervi x STATE MENT OF ADEQU ACY: Satis facto ry for evalu ation Trans forma tion zone compo nent prese nt FINAL DIAGN OSIS: Negat oneida for Intra epith elial Leschase n or Nelly wolfe (NIL) . Elect neemasharon peguero moses d by Janene Robins, CT on 2022 at 2:25 PM ----- ----- ----- ----- ----- ----- ----- ----- ----- ----- ----- ----- ----- ----- ----- ----- ----- ---- HPV RESUL TS: HPV mRNA E6/E7 : No HPV mRNA Detec estrella NOTE: This high risk HPV mRNA assay detec ts fourt een high- risk HPV types (16, 18, 31, 33, 35, 39, 45, 51, 52, 56, 58, 59, 66, 68) witho ut diffe renti ation . COMME NT: Note: This speci men was revie wed by a Cytot echno logis t and/o r Patho logis t (as indic ated in this repor t) after evalu ation using the Thinp rep Imagi ng Syste m. CLINI GHULAM INFOR MATIO N: Menst rual Statu s: LMP (if appli cable ): Clini ghulam Histo ry/Pr eviou s Pap: Type of Neopl anant (if appli cable ): Signi fican t Clini ghulam Findi ngs: Other Histo ry: Hormo kay (if appli cable ): PAP EDUCA YOSHI L NOTE: The Pap Test is a scree mike test with an inher ent false negat oneida rate. Liqui d-bas ed sampl ing may decre ase, but will not elimi georgiana, false negat oneida resul ts. A negat oneida resul t does not precl ude the prese nce and/o r devel opmen t of disea se, since the prese nce of abnor mal cells in the sampl e depen ds on the locat ion of the lesio n and sampl ing techn ique. Dori nued regul ar scree mike is the best metho d of cance r preve ntion . If repor estrella cytol ogic findi ng do not corre late with physi ghulam and/o r histo rical findi ngs, furth er inves tigat ion is recom sanjuana d, as clini padma molina nted. Not Available [facility] (Lab) [address], [place], [address], 06/20/2022 15:28:24 03/12/20 24 03/12/2024 IMAGE GUIDE D PAP AND HPV REGAR DLESS image guided Pap, HPV regardless of Pap result SEE RESULT S BELOW CASE REPOR T: Cytol ogy Gynec ologi ghulam Repor t Case: [id number] Autho selwyn g Provi ofe: Ruth Earl MD Colle cted: 03/12 1500 Order ing Locat ion: [place] Patho logy Recei cem: 03/13 0157 First Scree n: Janene Robins, CT Speci men: Scree mike Pap - Image d, Cervi x STATE MENT OF ADEQU ACY: Satis facto ry for evalu ation Trans forma tion zone compo nent prese nt ----- ----- ----- ----- ----- ----- ----- ----- ----- ----- ----- ----- ----- ----- ----- ----- ----- ---- FINAL DIAGN OSIS: Negat oneida for Intra epith elial Lesio n or Nelly wolfe (NIL) . Elect robin peguero moses d by Janene Robins, CT on 03/20 at 11:01 AM ----- ----- ----- ----- ----- ----- ----- ----- ----- ----- ----- ----- ----- ----- ----- ----- ----- ---- HPV RESUL TS: HPV mRNA E6/E7 : No HPV mRNA Detec estrella NOTE: This high risk HPV mRNA assay detec ts fourt een high- risk HPV types (16, 18, 31, 33, 35, 39, 45, 51, 52, 56, 58, 59, 66, 68) witho ut diffe renti ation . COMME NT: This speci men was revie wed by a Cytot echno logis t and/o r Patho logis t (as indic ated in this repor t) after evalu ation using the Thinp rep Imagi ng Syste m. CLINI GHULAM INFOR MATIO N: Menst rual Statu s: LMP (if appli cable ): Clini ghulam Histo ry/Pr eviou s Pap: Type of Neopl anant (if appli cable ): Signi fican t Clini ghulam Findi ngs: Other Histo ry: Hormo kay (if appli cable ): PAP EDUCA YOSHI L NOTE: The Pap Test is a scree mike test with an inher ent false negat oneida rate. Liqui d-bas ed sampl ing may decre ase, but will not elimi georgiana, false negat oneida resul ts. A negat oneida resul t does not precl ude the prese nce and/o r devel opmen t of disea se, since the prese nce of abnor mal cells in the sampl e depen ds on the locat ion of the lesio n and sampl ing techn ique. Dori nued regul ar scree mike is the best metho d of cance r preve ntion . If repor estrella cytol ogic findi ng do not corre late with physi ghulam and/o r histo rical findi ngs, fur er inves tigat ion is recom sanjuana d, as clini padma molina nted. Not Available [facility] (Lab) [address], [place], [address], 03/20/2024 12:05:23 Result Notes None recorded. Problems Name Problem SNOMED Code Status Onset Date Resolution Date Notes Provider Name and Address Organization Details Recorded Time Zayra bernal 30263025 Active 2022 Judy Kellogg MD [address], [place], [address], [facility] 15:11:39 Osteopenia 560119095 Active 2022 Judy Kellogg MD [address], [place], [address], [facility] 15:12:05 Problem Notes None recorded. Procedures Surgical History Date Name Laterality Status Provider Name and Address Organization Details Recorded Time 07/04/19 24 Date of Last Mammogram completed [facility] 03/12/2024 15:09:14 06/26/19 23 completed [facility] 03/12/2024 15:09:14 06/16/19 23 Date of Last Pap Smear completed [facility] 03/12/2024 15:10:15 05/04/19 23 Most Recent Bone Density completed Mayra Gaxiola [facility] 03/04/2024 10:57:57 04/30/19 10 Date of Last Colonoscopy completed [facility] 06/16/2022 15:06:[address] [facility] 06/16/2022 15:07:32 Imaging Results None recorded. Procedure Notes None recorded. Medical Equipment None Reported. Allergies No known drug allergies Medications Name Sig Start Date Stop Date Status Note LastModified by Organization Details LastModified Time atorvasta tin 20 mg tablet TAKE 1 TABLET BY MOUTH EVERY DAY active Not Available Not Available No t Available aspirin 325 mg tablet take 1 tablet by oral route every day 06/16 completed Prescrib ed Elsewher e: Yes Loca tion: Rajinder mckeon [facility] odify By: antony yadav DateTime : 06/19/19 12 04:00:00 PM Not Available Not Available Not Available ciclopiro x 8 % topical solution APPLY TOPICALL Y TO TOENAILS DAILY active Not Available Not Available No t Available Claritin 5 mg/5 mL oral solution take 10 millilit er by oral route every day 06/16 completed Prescrib ed Elsewher e: Yes Loca tion: Rajinder mckeon [facility] odify By: iain varner DateTime : 10/23/19 15 04:30:00 PM Not Available Not Available Not Available bisacodyl 5 mg tablet,de layed release 06/16 completed Not Available Not Available Not Available mupirocin 2 % topical ointment APPLY 1 APPLCATI ON ONTO THE AFFECTED AREA(S) ON THE SKIN TWICE DAILY 06/16 completed Not Available Not Available Not Available Bactrim DS 800 mg-160 mg tablet take 1 tablet by oral route every 12 hours 10/02 completed Prescrib ed Elsewher e: No Locat ion: Rajinder mckeon [facility] odify By: iain varner DateTime : 06/23/19 12 03:08:57 PM Not Available Not Available Not Available moxifloxa terra 0.5 % eye drops PLACE 1 DROP IN BOTH EYES EVERY 2 HRS X1DAY, 4 TIMES DAILY X1DAY, THEN 3 TIMES DAILY X5DAYS 03/12 completed Not Available Not Available Not Available Calcio Yaakov 500 mg tablet 10/22 completed Prescrib ed Elsewher e: Yes Loca tion: Manish mike [facility] odify By: iain varner DateTime : 06/19/19 12 04:00:00 PM Not Available Not Available Not Available Fish Oil 300 mg capsule 10/02 completed Prescrib ed Elsewher e: Yes [facility] By: iain varner DateTime : 06/19/19 12 04:00:00 PM Not Available Not Available Not Available GaviLyte- G 236 gram-22.7 4 gram-6.74 gram-5.86 gram oral solution 06/16 completed Not Available Not Available Not Available Caltrate active Not Available Not Avai lable Not Available Caltrate- D3 Plus Minerals active Not Available Not Available Not Available Vitals Date Recorded Body height Body mass index (BMI) Body weight Systolic blood pressure Diastolic blood pressure Provider Name and Address Organization Details Last Updated DateTime 06/16/2022 162.56 cm 27.8 kg/m2 47581.96 g 149 mm[Hg] 84 mm[Hg] Shreyagrabiel Herreraamberly [facility] 3 15:05:37 Date Recorded Body height Body mass index (BMI) Body weight Systolic blood pressure Diastolic blood pressure Provider Name and Address Organization Details Last Updated DateTime 03/12/2024 162.56 cm 29.7 kg/m2 24921.48 g 152 mm[Hg] 80 mm[Hg] Elizabeth Gomez [facility] 4 15:14:08 Social History Question Answer Notes LastModified by Organizat ion Details LastModified Time Tobacco Smoking Status Never Smoker formerly [facility], [facility] 06/16/2022 15:07:23 Do You Have An Advance Directive? No Information n ot available 03/12/2024 What Is Your Level Of Alcohol Consumption? Occasional [email or web address] Information not available 03/04/2024 How Many Years Have You Consumed Alcohol? 50 [email or web address] Information not available 03/04/2024 Are You Blind Or Do You Have Difficulty Seeing? No [email or web address] Information n ot available 03/04/2024 What Is Your Level Of Caffeine Consumption? Moderate [email or web address] Information not available 03/04/2024 In The 14 Days Before Symptom Onset, Have You Had Close Contact With A Laboratory-confirm ed COVID-19 While That Case Was Ill? No [email or web address] Information n ot available 03/04/2024 In The 14 Days Before Symptom Onset, Have You Had Close Contact With A Person Who Is Under Investigation For COVID-19 While That Person Was Ill? No Information not available 03/12/2024 Have You Been To An Area Known To Be High Risk For COVID-19? No Information not available 03/04/2024 Are You Deaf Or Do You Have Serious Difficulty Hearing? No [email or web address] Information not available 03/04/2024 What Type Of Diet Are You Following? CARBOHYDRATE [email or web address] Information n ot available 03/04/2024 What Is The Highest Grade Or Level Of School You Have Completed Or The Highest Degree You Have Received? 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 No [email or web address] Information not available 03/04/2024 Do You Use Protection During Sex? No [email or web address] Information not available 03/04/2024 Do You Use Your Seat Belt Or Car Seat Routinely? Yes [email or web address] Information not available 03/04/2024 Do You Have Smoke And Carbon Monoxide Detectors In Your Home? Yes [email or web address] Information not available 03/04/2024 How Much Tobacco Do You Smoke? No [email or web address] Information not available 03/04/2024 Do You Feel Stressed (tense, Restless, Nervous, Or Anxious, Or Unable To Sleep At Night)? [id number] [email or web address] Information not available 03/04/2024 Do You Use Any Illicit Or Recreational Drugs? No Information not available 06/16/2022 Do You Use Sunscreen Routinely? Yes [email or web address] Information not available 03/04/2024 Has Tobacco Cessation Counseling Been Provided? No Information not available 06/16/2022 Have You Used IV Drugs? No [email or web address] Information not available 03/04/2024 Do You Or Have You Ever Used Any Other Forms Of Tobacco Or Nicotine? No Information not available 06/16/2022 Sex: Unknown Functional Status Question Answer Note LastModified by Organizat ion Details LastModified Time Are you able to walk? YESWOREST [email or web address] Information not available 03/04/2024 What is your exercise level? Occasional Information not available 03/12/2024 Mental Status None recorded. Family History Relationship Description Onset Age of this Age Resolved Age Notes LastModified by Organization Details LastModified Time Mother Malignant tumor of breast [email or web address] Not available 2023 10:57:52 Father Heart disease [email or web address] Not available 2023 10:57:52 Notes:Father: Heart disease Maternal grandmother: Stroke Mother: Cancer, breast, Hypothyroidism Medical History Condition Response Other N Blood Transfusion N Dermatologic Disorders N Gestational Diabetes N Anxiety Disorder N Autoimmune disease N Arthritis N Polyps N Infertility N Acid Reflux (GERD) N Cancer Y Varicosities N Stroke N Neurologic/Epilepsy N Fibromyalgia N Headaches N Kidney Disease N Heart Problems N Kidney or Bladder Problems N Eating Disorder N Art (IVF or FET) N Hepatitis/Liver Disease N No Past Medical History N Urinary Tract Infection N Asthma N Trauma/Violence N Thrombophilias N Allergies (Food, seasonal, environmental ) N Breast Cancer N Drug/Latex Allergies/Reactions N Lung Disease N Defects or Inherited Disease N Breast Problem N Hematologic disorders N Anesthesia Complications N History of STI N Deep Vein Thrombosis N Polycystic ovary syndrome N History of abnormal pap N Endometriosis N High Cholesterol Y Thyroid Problems N GI Problems N Anemia N Psychiatric Illness N Ovarian Cancer N Diabetes N Pulmonary (TB, Asthma) N Eczema N Abuse/Domestic Violence N Depression/ depression N Heart Disease N Pre-Eclampsia N Hypertension N Osteoporosis N Gynecological History Statement/Question Response Date of Last Mammogram 07/04/2023 Date of LMP 10/12/2006 N On BCP's at Conception? N STIs/STDs N Was last menstrual period normal Y HPV Vaccine N Duration of Flow (days) 5 Current Control Method Menopause Age at First Child 23 If Post Menopausal, Age at Menopause 51 Are cycles usually normal Y Date of Last Colonoscopy 04/30/2009 Frequency of Cycle (Q days) 28 Most Recent Bone Density 05/04/2022 Sexually Active? N Menses Monthly N Age of first menstrual cycle 10 Date of Last Pap Smear 06/16/2022 Sexual Problems? N LMP Approximate 06/26/2022 N Obstetrics History GPAL:G 2 P 2 0 0 2 Type Value Full Term 2 Living 2 Total 2 Past Encounters Encounter ID Performer Location Encounter Start Date Encounter Closed Date Diagnosis/Indication Diagnosis SNOMED-CT Code Diagnosis ICD10 Code Diagnosis Note [id number] Judy Kellogg MD [place] [address] [address] 06/16/2022 14:48:31 06/16/2022 16:56:30 Osteopenia 093252210 M85.80 Gynecologi c examination 31089232 Z01.419 [id number] Eder Earl MD [place] [address] [address] 03/12/2024 14:50:27 03/12/2024 15:46:24 Gynecologic examination 11577960 Z01.419 Annual gynecologi ghulam exam performed. Patient will come back in a year unless there are new symptoms. Suggest Calcium with Vitamin D if not eating in diet. Patient advised to get annual flu shot. Recommend yearly physicals and preform monthly breast exams. Genetic testing is available for patients with family history of cancer. Engage in safe sexual practices, use condoms. Encouraged to have daily exercise. Avoid tobacco and illicit drugs, moderation of alcohol. If BMI greater than 25 dietary consult advised. If you have any questions please call or email. mammogram- ordered colon cancer screening - done DEXA scan- done Pap smear- today laboratory evaluation - done Health Concerns Section Related Observation LastModified by Organization Detai ls LastModified Time None Recorded Concern Status LastModified by Organization Details LastModified Time None Recorded Advance Directives Directive N: Payers Encounter Date Sequence Insurance Name Policy Number Policy Abel Covered Member ID Abel Member ID Guarantor Name 06/16/2022 1 [place] [id number] Elva Jiang [id number] Elva Jiang 03/12/2024 1 [place] Elva Jiang [id number] Elva Jiang 03/12/2024 2 [facility] (MEDICARE SUPPLEMENT) Elva Jiang [id number] Elva Jiang Notes Date Note Type Note Provider Name and Address Organization Details Recorded Time 06/16/2022 text/html Patient is a 67y o who presents for an annual exam. No concerns. Menopause around 51, no bleeding. last pap-2018, all normal per patient mammo-olono scopy-2009, has scheduled next month dexa-04/2022, osteopenia menopause-y sexually active-no seatbelts-y exercise-y depression-denies domestic violence-denies tobacco-n concerns- Judy Kellogg MD [address], [place], [address], [facility] 06/16/2022 16:55:37 03/12/2024 text/html Annual GYNReport ed bypatient.History: no gynecologic complaints Urinary symptoms:No hematuria; No incontinence Vulva:No genital lesion Vagina:Normal vaginal discharge Breast:No breast pain; No breast lump Sexual complaints:No sexual complaints; No pain during intercourse Menopausal Symptoms:No menopausal symptoms Psychological symptoms:No depression; No anxiety Preventive measures:Encourage self breast examination; Encourage regular exercise Eder Earl MD [address], [place], [address], [facility] 03/12/2024 15:45:00 OBGyn Episode Ob Episode Information Episode Created Date Number of Fetuses Patient Bloodtype Patient rh Status Prepregnancy Weight lbs Domestic Partner Domestic Partner Phone Father Name Beam Saw Operator Status 06/16/19 1 CLOSED Fetus Data First Name Last Name Admitted to NICU Weight (g) Sex Living Outcome Pediatric Complications Fetus ID Race Codes Race Delivery Type 3912.23 1 M Full Term [id number] Vaginal Delivery Manuel Calculation Initial Manuel Date Initial Exam Date Initial Exam Provider Initial Ultrasound Date Last Menstrual Period Date Ultra Sound Weeks Gestation 0 Eighteen To Twenty Week Manuel Update Ultra Sound Date Fundal Height At Umbil Quickening Date Ultra Sound Latest Weeks Gestation Final Manuel Confirmed By Final Manuel Confirmed Date Final Manuel Date Ultra Sound Latest Days Gestation 0 0 Menstrual History Last Menstrual Date Menses Monthly On Bcp Conception Prior Menses Frequency Hcg Plus Date Menarche Onset Age Delivery Information Delivery Date Delivery Type Labor Anesthesia Weeks Gestation Incision Type Labor Labor Length Hrs Delivered By Post Complications Tubal Sterilization Discharge Date Comments 9 41 Discharge Information Feeding Method Contraceptive Method Maternal HG B and HCT Levels Ob Episode Information Episode Created Date Number of Fetuses Patient Bloodtype Patient rh Status Prepregnancy Weight lbs Domestic Partner Domestic Partner Phone Father Name Beam Saw Operator Status 06/16/19 1 CLOSED Fetus Data First Name Last Name Admitted to NICU Weight (g) Sex Living Outcome Pediatric Complications Fetus ID Race Codes Race Delivery Type 4252.42 5 M Full Term [id number] Vaginal Delivery Manuel Calculation Initial Manuel Date Initial Exam Date Initial Exam Provider Initial Ultrasound Date Last Menstrual Period Date Ultra Sound Weeks Gestation 0 Eighteen To Twenty Week Manuel Update Ultra Sound Date Fundal Height At Umbil Quickening Date Ultra Sound Latest Weeks Gestation Final Manuel Confirmed By Final Manuel Confirmed Date Final Manuel Date Ultra Sound Latest Days Gestation 0 0 Menstrual History Last Menstrual Date Menses Monthly On Bcp Conception Prior Menses Frequency Hcg Plus Date Menarche Onset Age Delivery Information Delivery Date Delivery Type Labor Anesthesia Weeks Gestation Incision Type Labor Labor Length Hrs Delivered By Post Complications Tubal Sterilization Discharge Date Comments 1 40 Discharge Information Feeding Method Contraceptive Method Maternal HG B and HCT Levels
== END 2024-08-25 15:00 | disposition home or self-care (01) ==
LOC: ANHIMG 15:01
PROVIDERS: PCP Internal Medicine; Visit Provider Obstetrics & Gynecology
DX: Z12.31 Encounter for screening mammogram for malignant neoplasm of breast (principal)
CPT/HCPCS: 77063; 77067